=== PATIENT | male | born 1970 | race American Indian/Alaskan Native ===

== ENCOUNTER 2016-11-22 12:51 | Inpatient (IN) | payer MEDICAID, OTHER ==
--- NOTE | 2016-11-22 13:26 | RAD ---
HISTORY: Detox/Psy COMPARISON: No prior. TECHNIQUE: Chest PA and lateral FINDINGS: LUNGS: No active pulmonary disease. PLEURA: No significant pleural effusion identified. No pneumothorax apparent. CARDIOVASCULAR: Normal. OSSEOUS STRUCTURES: No significant abnormalities. VISUALIZED UPPER ABDOMEN: Normal. OTHER FINDINGS: None. IMPRESSION: No active disease.
--- NOTE | 2016-11-22 13:37 | C.PDOC ---
History Of Present Illness 46 yo male w/PMHx of opioid, benzo abuse come in request detox. Pt denies suicidal or homocidal ideation or attempts. Denies any active physical complaints. last dose- yesterday. Ambulate to ED for evaluation, not in any apparent distress. Time Seen by Provider: 11/22/16 13:08 Chief Complaint (Nursing): Substance Abuse History Per: Patient Past Medical History Reviewed: Historical Data, Nursing Documentation, Vital Signs Vital Signs: Last Vital Signs Temp 97.7 F 11/22/16 15:05 Pulse 67 11/22/16 15:05 Resp 18 11/22/16 15:05 BP 103/71 11/22/16 15:05 Pulse Ox 98 11/22/16 15:05 - Medical History PMH: No Chronic Diseases Denies: Diabetes, Hepatitis, HIV, HTN, Chronic Kidney Disease, Seizures, Sexually Transmitted Disease Surgical History: No Surg Hx - [facility] Procedures DETOXIFICATION SERVICES FOR SUBSTANCE ABUSE TREATMENT (05/29/15) DRUG DETOXIFICATION (07/18/14) Family History: States: Unknown Family Hx - Social History Hx Tobacco Use: Yes Hx Alcohol Use: Yes Hx Substance Use: Yes - Immunization History Hx Tetanus Toxoid Vaccination: Yes Hx Influenza Vaccination: No Hx Pneumococcal Vaccination: No Review Of Systems Except As Marked, All Systems Reviewed And Found Negative. Constitutional: Negative for: Fever, Chills Eyes: Negative for: Vision Change ENT: Negative for: Throat Pain, Throat Swelling Cardiovascular: Negative for: Chest Pain, Palpitations, Edema, Light Headedness Respiratory: Negative for: Cough, Shortness of Breath, Wheezing Gastrointestinal: Negative for: Nausea, Vomiting, Abdominal Pain, Diarrhea Genitourinary: Negative for: Dysuria Musculoskeletal: Negative for: Neck Pain, Back Pain Skin: Negative for: Rash Neurological: Negative for: Weakness, Numbness, Altered Mental Status, Headache , Dizziness Physical Exam - Physical Exam Appears: Well, Non-toxic, No Acute Distress Skin: Normal Color, Warm, Dry, No Rash, No Ecchymosis Head: Atraumatic, Normacephalic Eye(s): bilateral: PERRL Nose: No Flaring, No Discharge Oral Mucosa: Moist Throat: Normal, No Erythema, No Exudate, No Drooling Neck: Supple Cardiovascular: Rhythm Regular Respiratory: No Decreased Breath Sounds, No Accessory Muscle Use, No Rales, No Rhonchi, No Stridor, No Wheezing Gastrointestinal/Abdominal: Soft, No Tenderness, No Organomegaly, No Distention , No Guarding Back: No CVA Tenderness, No Vertebral Tenderness Extremity: Normal ROM, No Pedal Edema, No Deformity Neurological/Psych: Oriented x3, Normal Speech ED Course And Treatment - Laboratory Results Result Diagrams: 11/22/16 13:36 11/22/16 13:36 Lab Interpretation: Normal ECG: Interpreted By Me, Viewed By Me ECG Interpretation: Normal Interpretation Of ECG: SR@64/min, NAD, no acute T wave or ST-T changes. O2 Sat by Pulse Oximetry: 98 Pulse Ox Interpretation: Normal - Radiology CXR: Interpreted by Me, Viewed By Me, Read By Radiologist CXR Interpretation: Yes: No Acute Disease Progress Note: At 13:30, DIAGNOSTICS REVIEW AND APPEARS NORMAL. PT IS MEDICALLY CLEARED AND STABLE FOR PES EVALUATION AND FURTHER PSYCHIATRIC EVALUATION/TRANSFER, NEED, AND TREATMENT. As per PES, case discussed with psychiatrist Dr. Moran and admission to Detox arranged. Disposition - Disposition Disposition: HOSPITALIZED Disposition Time: 14:20 Condition: STABLE - Clinical Impression Clinical Impression: Opioid dependence, Drug dependence
[2016-11-22 13:44] LABS: BASO # 0.1 K/uL (0.0-0.2); BASO % 1.3 % (0.0-2.0); EOS # 0.5 K/uL (0.0-0.7); EOS % 7.9 % (0.0-4.0); HEMATOCRIT 44.4 % (35.0-51.0); LYMPH # 2.5 K/uL (1.0-4.3); LYMPH % 36.8 % (20.0-40.0); MEAN CORPUSCULAR HGB CONC 32.9 g/dL (33.0-37.0); MEAN PLATELET VOLUME 8.2 fL (7.2-11.7); MONO # 0.4 K/uL (0.0-0.8); MONO % 6.4 % (0.0-10.0); RED CELL DISTRIBUTION WIDTH 14.1 % (11.5-14.5); WHITE BLOOD COUNT 6.9 K/uL (4.8-10.8)
[2016-11-22 13:58] LABS: CHLORIDE 98 mmol/L (98-107)
[2016-11-22 13:59] LABS: POTASSIUM 4.1 mmol/L (3.6-5.2); SODIUM 138 mmol/L (132-148)
[2016-11-22 14:01] LABS: ALKALINE PHOSPHATASE 79 U/L (38-126); AST/SGOT 34 U/L (17-59); BILIRUBIN,TOTAL 0.4 mg/dL (0.2-1.3); BLOOD UREA NITROGEN 10 mg/dL (9-20); CARBON DIOXIDE 29 mmol/L (22-30); GFR AFRICAN-AMERICAN > 60
[2016-11-22 14:02] LABS: ALCOHOL SERUM < 10 mg/dl (0-10); ALT/SGPT 35 U/L (21-72); CALCIUM 8.9 mg/dl (8.6-10.4); GLUCOSE,RANDOM 139 mg/dL (75-110); RBC URINE 1 /hpf (0-3); URINE BACTERIA RARE (<OCC); URINE BILIRUBIN NEGATIVE (NEGATIVE); URINE BLOOD NEGATIVE (NEGATIVE); URINE COLOR Yellow (YELLOW); URINE GLUCOSE (UA) NORMAL (Normal); URINE KETONE NEGATIVE (NEGATIVE); URINE LEUKOCYTE ESTERASE NEG Leu/uL (Negative); URINE PROTEIN NEGATIVE (NEGATIVE); URINE UROBILINOGEN NORMAL mg/dL (0.2-1.0); WBC URINE < 1 /hpf (0-5)
[2016-11-22] MEDS ORDERED: Aluminum Hydroxide/Magnesium Hydroxide Susp (30 mL) PO PRN (16:48)
[2016-11-22] MEDS ORDERED: guaiFENesin DM 200 mg-20 mg/10 ml UD PO PRN (16:48)
[2016-11-22] MEDS ORDERED: Albuterol HFA 90 mcg/actuation (8 g) INH PRN (18:30)
[2016-11-23] MEDS ORDERED: Buprenorphine Hydrochloride 2 mg SL ONE (11:00)
[2016-11-23] MEDS: Buprenorphine Hydrochloride 2 mg SL SCH ×3 (12:02→13:32)
--- NOTE | 2016-11-23 18:47 | PCM.PSYCH ---
Initial Psychiatric Evaluation - Initial Psychiatric Evaluation Type of Admission: Voluntary Legal Status: Capacity Chief Complaint (in patient's own words): I need treatment for heroine and benzos History of Present Illness and Precipitating Events: Patient is a 46 years old, , employed, -Serbian male, with history of opiate and anxiolytics use was admitted for the treatment of withdrawing from these drugs. Patient reported he started using heroin about 3 years ago, was using 10 bags daily, sniffing, every day, last used 2 days ago. History of one detox and 2 rehabs in the past. Xanax: Reported he started using Xanax 1 year ago, every day, using 3, 2 mg sticks daily. He also smokes half pack of cigarettes daily and is requesting for nicotine patch. Patient was born in [place], has high school graduation, working, lives with mother. He is and has 4 grown up children. His height is 5 feet 9 inches and weight is 165 pounds. Current Medications: Active Medications Generic Name Dose Route Start Last Admin Trade Name Freq PRN Reason Stop Dose Admin Al Hydrox/Mg Hydrox/Simethicone 30 ml 11/22/16 16:48 Maalox 30 Ml PO TID PRN Indigestion / Heartburn Albuterol 1 puff 11/22/16 18:30 Ventolin Hfa 90 Mcg/Actuation (8 G) INH RQ6 PRN Shortness of Breath Buprenorphine HCl 8 mg 11/24/16 10:45 Subutex SL 11/29/16 10:44 .TAPER KENRICK Taper Clonidine HCl 0.1 mg 11/22/16 16:48 Catapres PO Q8 PRN COWS Score More or Equal to 5 Guaifenesin/Dextromethorphan 10 ml 11/22/16 16:48 Robitussin Dm PO Q4H PRN Cough and chest congestion Hydroxyzine HCl 25 mg 11/23/16 10:49 Atarax PO Q6 PRN Anxiety Loperamide HCl 2 mg 11/22/16 16:48 Imodium PO Q8 PRN Diarrhea Lorazepam 1 mg 11/23/16 11:13 Ativan PO Q6 PRN Agitation Nicotine 1 patch 11/22/16 17:00 11/23/16 11:13 Nicoderm Cq TD 1 patch DAILY KENRICK Administration Ondansetron HCl 4 mg 11/22/16 16:48 Zofran Tab PO Q8 PRN Nausea/Vomiting Pseudoephedrine HCl 60 mg 11/22/16 16:48 Sudafed Tab PO QID PRN Nasal/Sinus Congestion Trazodone HCl 50 mg 11/23/16 22:00 Desyrel PO HS KENRICK Past Psychiatric History - Past Psychiatric History Previous Treatment History: Inpatient Prior Professional Help: One detox and 2 rehabs At [facility] hospital: Detox at [facility] History of Abuse: None reported History of ETOH/Drug Use: See HPI History of Family Illness: None reported Pertinent Medical Hx (Current Medical&Sleep Prob, Allergies): Allergies Allergy/AdvReac Type Severity Reaction Status Date / Time No Known Allergies Allergy Verified 07/18/14 08:09 No Known Home Med 05/29/15 Asthma Review of Systems - Psychiatric Psychiatric: Other Mental Status Examination - Personal Presentation Personal Presentation: Looks stated age - Affect Affect: Other (Irritable) - Motor Activity Motor Activity: Calm - Reliability in Providing Information Reliability in Providing Information: Fair - Speech Speech: Organized - Mood Mood: Other - Formal Thought Process Formal Thought Process: No Impairment - Hallucinations/Delusions Hallucinations: Other (None reported) Delusions: Other - Obsessions/Compulsions Obsessions: None Compulsions: None - Cognitive Functions Orientation: Person, Place, Situation, Time Sensorium: Alert Attention/Concentration: Attentive Abstract Thinking: [place] Estimate of Intelligence: Average Judgement: Intact, as evidence by: Insight regarding need for hospitalization Memory: Recent intact, as evidence by: 3/3 object recall, Remote intact, as evidenced by: Ability to recall historical events - Risk Risk: Withdrawal, Diminished functioning - Strength & Assets Inventory Strength & Assets Inventory: Family support, Cooperative - Limitations Limitations: Other DSM 5 DX - DSM 5 DSM 5 Diagnosis: Opiate use disorder Opiate withdrawal Anxiolytics use disorder Anxiolytics withdrawal - Recommended/Plan of Treatment Treatment Recommendations and Plan of Treatment: Patient education Supportive therapy We will start Subutex detox appropriate withdrawal Ativan when necessary for Xanax withdrawal Other when necessary medications [facility] for continuation of treatment after discharge from the hospital Projected ELOS: 4-5 days - Smoking Cessation Smoking Cessation Initiated: Yes
[2016-11-23 20:19] VITALS: PULSE 67
[2016-11-24 09:47] VITALS: BP 124/71; RESP 16; TEMP 98; O2SAT 98
[2016-11-24] MEDS ORDERED: Buprenorphine Hydrochloride 2 mg SL SCH (10:45)
--- NOTE | 2016-11-24 12:38 | PCM.PYCHDC ---
Mental Status Examination - Mental Status Examination Orientation: Person, Place, Situation, Time Memory: Intact Mood: Neutral Affect: Other (Appropriate) Speech: Appropriate Attention: WNL Concentration: WNL Association: WNL Fund of Knowledge: WNL Formal Thought Process: No Impairment Description of patient's judgement and insight: Poor Psychotic Thoughts and Behaviors: None Suicidal Ideation: No Current Homicidal Ideation?: No Discharge Summary - Discharge Note Reason for Hospitalization: Opiate use and withdrawal Anxiolytics use and withdrawal Laboratory Data: Reviewed Consultations:: List each consultation separately and include: 1. Reason for request. 2. Findings. 3. Follow-up Summary of Hospital Course include:: 1. Description of specific treatment plan utilized for patients during their course of treatmen. 2. Summarize the time- course for resolution of acute symptoms and/or regressed behaviors. 3. Describe issues identified and worked on during hospitalization. 4. Describe medication utilized. 5. Describe medical problems identified and treated. 6. Reassessment of suicide risk Summary of Hospital Course: Patient is a 46 years old, , employed, -Surinamese male, with history of opiate and anxiolytics use was admitted for the treatment of withdrawing from these drugs. Patient reported he started using heroin about 3 years ago, was using 10 bags daily, sniffing, every day, last used 2 days ago. History of one detox and 2 rehabs in the past. Xanax: Reported he started using Xanax 1 year ago, every day, using 3, 2 mg sticks daily. He also smokes half pack of cigarettes daily and is requesting for nicotine patch. Patient was born in [place], has high school graduation, working, lives with mother. He is and has 4 grown up children. His height is 5 feet 9 inches and weight is 165 pound Patient was started on Subutex and other when necessary medications. Yesterday patient got less of Subutex. Today patient decided to leave this unit. Education provided about completion of detox. Still patient refused to stay to complete detox. Patient was educated that in case of any adverse event. Including withdrawal. Relapse or even , patient will be responsible of his act. Patient understood and agreed but still refused to stay to complete detox and left AMA. At the time of evaluation and discharge, patient was awake alert oriented 3, had no delusions, no auditory or visual hallucinations, no suicidal ideations or homicidal ideations. Patient was discharged in stable condition. - Final Diagnosis (DSM 5) Condition upon Discharge: FAIR Disposition: AGAINST MEDICAL ADVICE Follow-up Treatment Plan: Patient wants to go to [facility] for continuation of treatment after discharge from the hospital - Smoking Cessation Smoking Cessation Medication prescribed: Yes - Antipsychotic Medications Pt discharged on 2 or more routine antipsychotic medications: No
--- NOTE | 2016-11-26 12:44 | CARD ---
APPROVED REPORT EKG Measurement Heart [id number] <Conclusion> Normal sinus rhythm Possible Left atrial enlargement Borderline ECG
== END 2016-11-24 09:50 | disposition left against medical advice (07) | DRG 743 ==
LOC: C.ER 12:51 → C.7D 15:06
PROVIDERS: ADMIT Psychiatry & Neurology Psychiatry; ATTEND Psychiatry & Neurology Psychiatry
PROC: HZ2ZZZZ Detoxification Services for Substance Abuse Treatment (ICD-10-PCS; principal; 2016-11-22)
PROC: HZ59ZZZ Individual Psychotherapy for Substance Abuse Treatment, Supportive (ICD-10-PCS; 2016-11-22)
PROC: HZ80ZZZ Medication Management for Substance Abuse Treatment, Nicotine Replacement (ICD-10-PCS; 2016-11-22)
DX: F11.23 Opioid dependence with withdrawal (principal); F13.239 Sedative, hypnotic or anxiolytic dependence with withdrawal, unspecified; F17.210 Nicotine dependence, cigarettes, uncomplicated